=== PATIENT | male | born 1995 | race Caucasian/White ===

== ENCOUNTER 2020-10-02 16:44 | Emergency (ER) | payer SELFPAY ==
[~2020-10-02] VITALS: Ht 180.3 cm; Wt 72.6 kg
[2020-10-02 16:45] VITALS: BP_SYST 151
--- NOTE | 2020-10-02 16:50 | NUR ---
Patient triaged and placed in waiting room. VSS and patient appears in no acute distress at this time. Accompanied by SELF, awaiting available bed, and MD notified of need for MSE.
--- NOTE | 2020-10-02 17:24 | NUR ---
BROUGHT BACK TO BED #7 AND TRIAGED. REPORT GIVEN TO SHABANA
--- NOTE | 2020-10-02 17:28 | NUR ---
ER at bedside examining patient.
--- NOTE | 2020-10-02 17:30 | NUR ---
pt arrives from home w/ c/o left ear pain and muffled hearing. Pt is currently afebrile. No other c/o at the moment
--- NOTE | 2020-10-02 17:50 | NUR ---
Patient given written and verbal discharge instructions and verbalizes understanding. ER MD discussed with patient the results and treatment provided. Patient in stable condition. ID arm band removed. Rx of motrin and ciprodex given. Patient educated on pain management and to follow up with PMD. Pain Scale 3/10. Opportunity for questions provided and answered. Medication side effect fact sheet provided.
== END 2020-10-02 17:50 | disposition home or self-care (01) ==
LOC: SED 16:44
DX: H60.92 Unspecified otitis externa, left ear (principal)
CPT/HCPCS: 99283